=== PATIENT | female | born 1940 | race Caucasian/White ===

== ENCOUNTER 2016-09-20 17:35 | Emergency (ER) | payer MEDICARE, OTHER ==
[~2016-09-20] VITALS: Ht 165.1 cm; Wt 109.0 kg
[~2016-09-20 17:35] MED LIST: ACET325T14 PO; AMLO10TA2 PO; BUPR150T73 PO; DILT30TA27 PO; FLUO40CA9 PO; FURO40TA6 PO; LEVO125T PO; LIOT5TAB3 PO; LOSA100T6 PO; OMEP-110 PO; ONDA4TAB7 PO; POTA20TA89 PO; POTA40LI3 PO; RIVA20TA PO; ZOLP-413 PO
[2016-09-20] MEDS ORDERED: SODIUM CHLORIDE 0.9% 1,000 ML IV ONE (17:45)
[2016-09-20] MEDS ORDERED: ASPIRIN 81 MG TABLET CHEW PO ONE (18:00)
[2016-09-20] MEDS ORDERED: SODIUM CHLORIDE FLUSH 10ML SYR IVF ONE (18:00)
[2016-09-20 18:34] LABS: BLOOD UREA NITROGEN 23 mg/dL (7-18)
[2016-09-20 18:40] LABS: IS PT STATUS REG ER OR PRE ER? YES
[2016-09-20] MEDS ORDERED: ASPIRIN 81 MG TABLET CHEW ONE (18:42)
[2016-09-20 19:21] VITALS: BP 122/49
== END 2016-09-20 20:27 | disposition home or self-care (01) ==
LOC: ED 20:00
DX: R42 Dizziness and giddiness (principal); I10 Essential (primary) hypertension; I48.91 Unspecified atrial fibrillation; Z86.73 Personal history of transient ischemic attack (TIA), and cerebral infarction without residual deficits; Z87.891 Personal history of nicotine dependence
CPT/HCPCS: 36415; 71020; 80048; 82040; 84439; 84443; 84484; 85025; 85610; 85730; 93005; 96360; 99285; J7030

== ENCOUNTER 2016-10-02 20:07 | Emergency (ER) | payer MEDICARE, OTHER ==
[~2016-10-02] VITALS: Ht 167.6 cm; Wt 104.5 kg
[2016-10-02] MEDS ORDERED: PHENYLEPHRINE NASAL 1%, 15ML SPRAY ONE (20:53)
[2016-10-02] MEDS ORDERED: SILVER NITRATE STICK TP ONE (20:54)
[2016-10-02 21:30] VITALS: BP 144/85
== END 2016-10-02 21:59 | disposition home or self-care (01) ==
LOC: ED 21:33
DX: R04.0 Epistaxis (principal); D68.9 Coagulation defect, unspecified; F32.9 Major depressive disorder, single episode, unspecified; I10 Essential (primary) hypertension; I48.91 Unspecified atrial fibrillation; Z79.01 Long term (current) use of anticoagulants; Z86.73 Personal history of transient ischemic attack (TIA), and cerebral infarction without residual deficits
CPT/HCPCS: 30901

== ENCOUNTER 2016-11-05 19:54 | Emergency (ER) | payer MEDICARE, OTHER ==
[~2016-11-05] VITALS: Ht 167.6 cm; Wt 107.0 kg
[2016-11-05 20:30] LABS: HEMATOCRIT 32.4 % (34.6-47.8); HEMOGLOBIN 10.6 g/dL (11.7-16.4); WHITE BLOOD COUNT 6.3 x10^3/uL (3.4-10)
[2016-11-05] MEDS ORDERED: SODIUM CHLORIDE FLUSH 10ML SYR IVF ONE (20:30)
[2016-11-05] MEDS ORDERED: SODIUM CHLORIDE 0.9% 1,000ML IVBOLUS ONE (20:30)
[2016-11-05 20:39] LABS: BLOOD UREA NITROGEN 19 mg/dL (7-18)
[2016-11-05 20:45] LABS: ASPARTATE AMINO TRANSFERASE 16 U/L (15-37)
[2016-11-05 20:46] LABS: IS PT STATUS REG ER OR PRE ER? YES
[2016-11-05] MEDS ORDERED: OXYC5CAP2 PO (21:04)
[2016-11-05] MEDS ORDERED: LOSA50TA6 PO (21:04)
[2016-11-05 22:10] VITALS: BP 128/60
== END 2016-11-05 22:41 | disposition home or self-care (01) ==
LOC: ED 20:05
DX: R55 Syncope and collapse (principal); J84.10 Pulmonary fibrosis, unspecified; Z86.73 Personal history of transient ischemic attack (TIA), and cerebral infarction without residual deficits; E78.5 Hyperlipidemia, unspecified; Z90.710 Acquired absence of both cervix and uterus; Z90.49 Acquired absence of other specified parts of digestive tract; Z88.8 Allergy status to other drugs, medicaments and biological substances
CPT/HCPCS: 36415; 71020; 80053; 84484; 85025; 93005; 96360; 99285; J7030

== ENCOUNTER → 2018-01-11 | Outpatient (CLI) | payer MEDICARE, OTHER ==
[~2018-01-11] MED LIST changes: -AMLO10TA2 PO; +AMLO10TA6 PO; -LOSA100T6 PO; +LOSA100T7 PO; +LOSA50TA7 PO; +OXYC5CAP2 PO; -POTA40LI3 PO; +POTA40LI7 PO
== END | disposition home or self-care (01) ==
LOC: CFH 13:35
PROVIDERS: ATTEND Internal Medicine
DX: Z12.31 Encounter for screening mammogram for malignant neoplasm of breast (principal)
CPT/HCPCS: 77067

== ENCOUNTER → 2018-01-17 | Outpatient (CLI) | payer MEDICARE, OTHER | END | disposition home or self-care (01) | LOC: CFH 13:59 | PROVIDERS: ATTEND Internal Medicine | DX: Z13.820 Encounter for screening for osteoporosis (principal); M85.88 Other specified disorders of bone density and structure, other site; M81.0 Age-related osteoporosis without current pathological fracture | CPT/HCPCS: 77080 ==

== ENCOUNTER 2019-09-01 13:43 | Emergency (ER) | payer MEDICARE, OTHER ==
[~2019-09-01] VITALS: Ht 167.6 cm; Wt 107.3 kg
[~2019-09-01 13:43] MED LIST changes: -AMLO10TA6 PO; +AMLO10TA8 PO; +LIOT5TAB11 PO; -LIOT5TAB3 PO; +LOSA100T14 PO; -LOSA100T7 PO; +LOSA50TA14 PO; -LOSA50TA7 PO
[2019-09-01 15:11] LABS: BASOPHILS # (AUTO) 0.02 x10^3/uL (0-0.1); BASOPHILS % (AUTO) 0 % (0-1); EOSINOPHILS # (AUTO) 0.15 x10^3/uL (0-0.4); EOSINOPHILS % (AUTO) 2 % (1-7); LYMPHOCYTES # (AUTO) 0.88 x10^3/uL (1-3.4); LYMPHOCYTES % (AUTO) 14 % (22-44); MD NO; MEAN CORPUSCULAR HEMOGLOBIN 30.2 pg (27.0-34.8); MEAN CORPUSCULAR HGB CONC 32.4 g/dL (32.4-35.8); MEAN CORPUSCULAR VOLUME 93.2 fL (80-100); MONOCYTES # (AUTO) 0.43 x10^3/uL (0.2-0.8); MONOCYTES % (AUTO) 7 % (2-9); NEUTROPHILS # (AUTO) 5.01 x10^3/uL (1.8-6.8); NEUTROPHILS % (AUTO) 77 % (42-75); PLATELET COUNT 368 x10^3/uL (130-400); RED BLOOD COUNT 4.36 x10^6/uL (3.82-5.3); RED CELL DISTRIBUTION WIDTH 13.3 % (9.6-15.2)
[2019-09-01 15:16] LABS: ALANINE AMINOTRANSFERASE 16 U/L (12-78); ALBUMIN 3.7 g/dL (3.4-5.0); ANION GAP 5 mmol/L (5-15); CALCIUM 9.2 mg/dL (8.5-10.1); CHLORIDE 105 mmol/L (98-107); CREATININE 1.36 mg/dL (0.55-1.02)
[2019-09-01 15:19] LABS: ALKALINE PHOSPHATASE 82 U/L (45-117); BILIRUBIN,TOTAL 0.4 mg/dL (0.2-1.0); TOTAL PROTEIN 7.1 g/dL (6.4-8.2)
[2019-09-01 15:31] VITALS: BP 173/66
== END 2019-09-01 15:35 | disposition home or self-care (01) ==
LOC: ED 15:28
DX: I10 Essential (primary) hypertension (principal); E78.5 Hyperlipidemia, unspecified; Z90.49 Acquired absence of other specified parts of digestive tract; Z90.710 Acquired absence of both cervix and uterus; Z86.73 Personal history of transient ischemic attack (TIA), and cerebral infarction without residual deficits
CPT/HCPCS: 36415; 71046; 80053; 85025; 93005; 99285

== ENCOUNTER 2020-02-15 15:51 | Inpatient (IN) | payer MEDICARE, OTHER ==
[~2020-02-15] VITALS: Ht 165.1 cm; Wt 97.2 kg
[~2020-02-15 15:51] MED LIST changes: +AMLO-211 PO; -AMLO10TA8 PO
--- NOTE | 2020-02-15 16:18 | NUR ---
PATIENT WHEELED BACK FROM TRIAGE WITH CHIEF C/O HIGH BP. PATIENT STATES HER BP HAS BEEN "ALL OVER THE PLACE" THE LAST 6 MONTHS. PATIENT ALSO REPORTS LOSS OF APPETITE THE LAST 6 MONTHS, PATIENT HAS ALSO BEEN SOB, GARRETT AND LETHARGY. PATIENT STATES SYMPTOMS HAVE PROGRESSIVELY GOTTEN WORSE. ACCOMPANIED BY SPOUSE, CLARK, BP NOW IS 189/70, CALL LIGHT WITHIN REACH.
--- NOTE | 2020-02-15 17:40 | NUR ---
Patient's has her cell phone and number is [phone] if he needs to be reached.
--- NOTE | 2020-02-15 18:03 | NUR ---
PATIENT AMBULATED TO BATHROOM WITH STEADY GAIT FOR URINE SAMPLE.
[2020-02-15 18:22] LABS: ALANINE AMINOTRANSFERASE 26 U/L (12-78); ALBUMIN 3.7 g/dL (3.4-5.0); ANION GAP 6 mmol/L (5-15); BASOPHILS % (AUTO) 0 % (0-1); CALCIUM 9.8 mg/dL (8.5-10.1); CHLORIDE 106 mmol/L (98-107); CREATININE 1.13 mg/dL (0.55-1.02); EOSINOPHILS % (AUTO) 0 % (1-7); LYMPHOCYTES % (AUTO) 10 % (22-44); MEAN CORPUSCULAR HEMOGLOBIN 29.6 pg (27.0-34.8); MEAN CORPUSCULAR HGB CONC 32.5 g/dL (32.4-35.8); MEAN PLATELET VOLUME 6.6 fL (7.4-10.4); MONOCYTES % (AUTO) 6 % (2-9); NEUTROPHILS % (AUTO) 83 % (42-75); PLATELET COUNT 501 x10^3/uL (130-400); RED BLOOD COUNT 4.47 x10^6/uL (3.82-5.3); RED CELL DISTRIBUTION WIDTH 13.4 % (9.6-15.2)
[2020-02-15 18:25] LABS: MD NO
[2020-02-15 18:26] LABS: ALKALINE PHOSPHATASE 96 U/L (45-117); BILIRUBIN,TOTAL 0.5 mg/dL (0.2-1.0); T4 (THYROXINE) 12.2 mcg/dL (4.8-13.9); TOTAL PROTEIN 7.2 g/dL (6.4-8.2); TROPONIN I 0.075 ng/mL (0.000-0.045)
[2020-02-15] MEDS ORDERED: hydrALAzine 20 MG/ML, 1ML ONE (18:29)
[2020-02-15 18:54] LABS: MICROSCOPIC INDICATED
--- NOTE | 2020-02-15 18:58 | NUR ---
ERMD AT BEDSIDE TO DISCUSS POC.
[2020-02-15] MEDS ORDERED: hydrALAzine 20 MG/ML, 1ML IV ONE (19:00)
[2020-02-15] MEDS ORDERED: CEFTRIAXONE PMX 1GM/50ML 50 ML ONE (19:13)
[2020-02-15] MEDS ORDERED: SODIUM CHLORIDE 0.9% 1,000 ML IV SCH (19:30)
[2020-02-15] MEDS ORDERED: CEFTRIAXONE PMX 1GM/50ML 50 ML IV ONE (19:30)
[2020-02-15] MEDS ORDERED: DOXYCYCLINE 100 MG in DEXTROSE 5% 250 ML IV SCH (19:30)
[2020-02-15] MEDS ORDERED: GUAIFENESIN/DM 200-20MG, 10ML UDC PO PRN (19:30)
[2020-02-15 19:43] LABS: C-REACTIVE PROTEIN, QUANT 0.21 mg/dL (0.02-0.49)
[2020-02-15 19:53] LABS: D-DIMER (DIC) 0.35 ug/mlFEU (0.00-0.52); PROTIME 11.1 Seconds (9.6-11.5)
--- NOTE | 2020-02-15 20:36 | NUR ---
PATIENT AMBULATED TO BATHROOM WITH STEADY GAIT, AMBULATED BACK TO [facility], CONNECTED TO RADAR MECHANIC, NADN, CALL LIGHT WITHIN REACH.
--- NOTE | 2020-02-15 20:55 | NUR ---
MEDS REQUESTED FROM PHARMACY, ONLY 30 MG TABLET SENT, NOTIFIED PHARMACY THAT REQUESTED DOSAGE IS 90 MG. THEY WILL SEND OTHER TABLETS.
--- NOTE | 2020-02-15 20:56 | NUR ---
REPORT CALLED TO YVONNE PRETTY ON [facility].
--- NOTE | 2020-02-15 20:59 | NUR ---
SPOKE WITH PATIENT'S SPOUSE MABLE, AND UPDATED ON POC.
[2020-02-15] MEDS: DILTIAZEM 30 MG TABLET PO SCH (21:03)
[2020-02-15] MEDS: LOSARTAN 50MG TABLET PO SCH (21:03)
--- NOTE | 2020-02-15 22:28 | NUR ---
PATIENT TRANSFERRED IN STABLE CONDITION VIA GURNEY WITH 2 ED TECHS TO [facility] TELEMETRY FLOOR. ALL PATIENT BELONGINGS GATHERED AND TAKEN TO FLOOR WITH PATIENT.
[2020-02-15 22:45] VITALS: BP 151/74
[2020-02-15] MEDS: ACETAMINOPHEN 325 MG TABLET PO PRN (23:30)
[2020-02-16] VITALS (17 sets, daily range): BP systolic 146–195; BP diastolic 71–101
[2020-02-16] MEDS: hydrALAzine 20 MG/ML, 1ML IVPush PRN ×4 (00:28→15:35)
[2020-02-16 01:27] LABS: TROPONIN I 0.054 ng/mL (0.000-0.045)
[2020-02-16] MEDS: LABETALOL 5MG/ML, 20ML IVPush PRN ×3 (03:54→13:10)
[2020-02-16] MEDS: LIOTHYRONINE 5 MCG TABLET PO SCH (05:21)
[2020-02-16] MEDS: ACETAMINOPHEN 325 MG TABLET PO PRN ×2 (05:21→11:56)
[2020-02-16] MEDS: LEVOTHYROXINE 125 MCG TABLET PO SCH (05:21)
[2020-02-16 06:14] LABS: BASOPHILS % (AUTO) 0 % (0-1); EOSINOPHILS % (AUTO) 1 % (1-7); LYMPHOCYTES % (AUTO) 13 % (22-44); MEAN CORPUSCULAR HEMOGLOBIN 30.1 pg (27.0-34.8); MEAN CORPUSCULAR HGB CONC 32.9 g/dL (32.4-35.8); MEAN PLATELET VOLUME 6.5 fL (7.4-10.4); MONOCYTES % (AUTO) 9 % (2-9); NEUTROPHILS % (AUTO) 77 % (42-75); PLATELET COUNT 494 x10^3/uL (130-400); RED BLOOD COUNT 4.13 x10^6/uL (3.82-5.3); RED CELL DISTRIBUTION WIDTH 13.5 % (9.6-15.2)
[2020-02-16 06:15] LABS: MD NO
[2020-02-16 06:27] LABS: CHLORIDE 108 mmol/L (98-107)
[2020-02-16 06:37] LABS: ALBUMIN 3.3 g/dL (3.4-5.0); ALKALINE PHOSPHATASE 86 U/L (45-117); ANION GAP 8 mmol/L (5-15); BILIRUBIN,TOTAL 0.5 mg/dL (0.2-1.0); CALCIUM 9.2 mg/dL (8.5-10.1); CREATININE 1.02 mg/dL (0.55-1.02); TOTAL PROTEIN 6.7 g/dL (6.4-8.2)
[2020-02-16 06:38] LABS: ALANINE AMINOTRANSFERASE 23 U/L (12-78)
[2020-02-16] MEDS: DILTIAZEM 30 MG TABLET PO SCH ×3 (09:59→20:17)
[2020-02-16] MEDS: LOSARTAN 50MG TABLET PO SCH ×2 (09:59→20:21)
[2020-02-16] MEDS: RIVAROXABAN 20 MG TABLET PO SCH (10:00)
[2020-02-16] MEDS: FUROSEMIDE 40 MG TABLET PO SCH (10:00)
[2020-02-16] MEDS: DOXYCYCLINE 100MG TABLET PO SCH ×3 (10:00→20:23)
[2020-02-16] MEDS: POTASSIUM CHLORIDE 10 MEQ TABLET.ER PO SCH (10:00)
[2020-02-16] MEDS: BUTALB/APAP/CAFFEINE 50MG/325MG/40MG PO PRN ×2 (10:00→18:26)
[2020-02-16] MEDS ORDERED: GABAPENTIN 300 MG CAPSULE PO PRN (10:00)
[2020-02-16] MEDS ORDERED: ONDANSETRON 2MG/ML, 2ML IVPush PRN (11:00)
[2020-02-16] MEDS ORDERED: HYDROcodone/APAP 5/325 TABLET PO PRN (14:00)
[2020-02-16] MEDS ORDERED: CEFTRIAXONE PMX 1GM/50ML 50 ML IV SCH (19:30)
[2020-02-16] MEDS: MELATONIN 5 MG TABLET PO SCH (20:21)
[2020-02-17 00:34] VITALS: BP 99/57
[2020-02-17 04:52] LABS: BASOPHILS % (AUTO) 0 % (0-1); EOSINOPHILS % (AUTO) 1 % (1-7); LYMPHOCYTES % (AUTO) 13 % (22-44); MEAN CORPUSCULAR HEMOGLOBIN 30.9 pg (27.0-34.8); MEAN CORPUSCULAR HGB CONC 33.7 g/dL (32.4-35.8); MEAN PLATELET VOLUME 6.6 fL (7.4-10.4); MONOCYTES % (AUTO) 9 % (2-9); NEUTROPHILS % (AUTO) 77 % (42-75); PLATELET COUNT 478 x10^3/uL (130-400); RED BLOOD COUNT 3.83 x10^6/uL (3.82-5.3); RED CELL DISTRIBUTION WIDTH 13.8 % (9.6-15.2)
[2020-02-17 05:03] LABS: ANION GAP 7 mmol/L (5-15); CALCIUM 8.8 mg/dL (8.5-10.1); CHLORIDE 106 mmol/L (98-107)
[2020-02-17 05:04] LABS: CREATININE 1.31 mg/dL (0.55-1.02)
[2020-02-17 05:18] LABS: MD NO
[2020-02-17] MEDS: LEVOTHYROXINE 125 MCG TABLET PO SCH (05:20)
[2020-02-17] MEDS: LIOTHYRONINE 5 MCG TABLET PO SCH (05:21)
[2020-02-17 08:18] VITALS: BP 123/66
[2020-02-17] MEDS: RIVAROXABAN 20 MG TABLET PO SCH (09:26)
[2020-02-17] MEDS: POTASSIUM CHLORIDE 10 MEQ TABLET.ER PO SCH (09:26)
[2020-02-17] MEDS: LOSARTAN 50MG TABLET PO SCH ×2 (09:26→21:08)
[2020-02-17] MEDS: FUROSEMIDE 40 MG TABLET PO SCH (09:26)
[2020-02-17] MEDS: DOXYCYCLINE 100MG TABLET PO SCH ×2 (09:26→21:08)
[2020-02-17] MEDS: DILTIAZEM 30 MG TABLET PO SCH ×3 (09:26→21:09)
[2020-02-17] MEDS ORDERED: PHARMACY MAY ADJ FOR RENAL FX MC PRN (10:00)
[2020-02-17] MEDS: MEROPENEM 1 GM in SODIUM CHLORIDE 0.9% 100 ML IV SCH ×2 (10:44→21:14)
[2020-02-17 12:38] VITALS: BP 95/54
[2020-02-17 21:00] VITALS: BP 121/68
[2020-02-17] MEDS: MELATONIN 5 MG TABLET PO SCH (21:08)
[2020-02-18 01:25] VITALS: BP 105/56
[2020-02-18] MEDS: ACETAMINOPHEN 325 MG TABLET PO PRN ×2 (03:10→22:55)
[2020-02-18] MEDS: LEVOTHYROXINE 125 MCG TABLET PO SCH (06:01)
[2020-02-18] MEDS: LIOTHYRONINE 5 MCG TABLET PO SCH (06:02)
[2020-02-18 06:34] LABS: ANION GAP 5 mmol/L (5-15); CALCIUM 8.9 mg/dL (8.5-10.1); CHLORIDE 107 mmol/L (98-107); CREATININE 1.49 mg/dL (0.55-1.02)
[2020-02-18] MEDS: LOSARTAN 50MG TABLET PO SCH ×2 (09:32→22:27)
[2020-02-18] MEDS: DOXYCYCLINE 100MG TABLET PO SCH ×2 (09:33→22:27)
[2020-02-18] MEDS: DILTIAZEM 30 MG TABLET PO SCH ×3 (09:33→22:26)
[2020-02-18] MEDS: POTASSIUM CHLORIDE 10 MEQ TABLET.ER PO SCH (09:40)
[2020-02-18] MEDS: RIVAROXABAN 20 MG TABLET PO SCH (09:40)
[2020-02-18] MEDS: MEROPENEM 1 GM in SODIUM CHLORIDE 0.9% 100 ML IV SCH ×2 (10:18→22:27)
[2020-02-18 14:18] VITALS: BP 121/57
[2020-02-18 19:51] VITALS: BP 118/56
[2020-02-18] MEDS: MELATONIN 5 MG TABLET PO SCH (22:27)
[2020-02-19 01:01] VITALS: BP 102/58
[2020-02-19] MEDS: DOCUSATE 100 MG CAPSULE PO PRN (06:27)
[2020-02-19] MEDS: LEVOTHYROXINE 125 MCG TABLET PO SCH (06:27)
[2020-02-19] MEDS: LIOTHYRONINE 5 MCG TABLET PO SCH (06:27)
[2020-02-19] MEDS ORDERED: SODIUM CHLORIDE 0.9% 1,000ML IVBOLUS ONE (06:30)
[2020-02-19 06:50] VITALS: BP 112/69
[2020-02-19 06:58] LABS: ANION GAP 5 mmol/L (5-15); CALCIUM 9.2 mg/dL (8.5-10.1); CHLORIDE 109 mmol/L (98-107)
[2020-02-19 07:00] LABS: CREATININE 1.18 mg/dL (0.55-1.02)
[2020-02-19] MEDS: DOXYCYCLINE 100MG TABLET PO SCH ×2 (08:53→21:37)
[2020-02-19] MEDS: DILTIAZEM 30 MG TABLET PO SCH ×3 (08:53→21:38)
[2020-02-19] MEDS: LOSARTAN 50MG TABLET PO SCH ×2 (08:53→21:38)
[2020-02-19] MEDS: RIVAROXABAN 15 MG TABLET PO SCH (08:54)
[2020-02-19] MEDS: MEROPENEM 1 GM in SODIUM CHLORIDE 0.9% 100 ML IV SCH ×2 (10:21→23:00)
[2020-02-19 14:11] VITALS: BP 142/62
[2020-02-19 20:03] VITALS: BP 120/53
[2020-02-19] MEDS: MELATONIN 5 MG TABLET PO SCH (21:38)
[2020-02-20 00:08] VITALS: BP 112/69
[2020-02-20] MEDS: DOCUSATE 100 MG CAPSULE PO PRN (06:41)
[2020-02-20] MEDS: LEVOTHYROXINE 125 MCG TABLET PO SCH (06:41)
[2020-02-20] MEDS: LIOTHYRONINE 5 MCG TABLET PO SCH (06:41)
[2020-02-20 07:01] VITALS: BP 118/69
[2020-02-20] MEDS ORDERED: FUROSEMIDE 40 MG TABLET PO SCH (09:00)
[2020-02-20] MEDS: DOXYCYCLINE 100MG TABLET PO SCH (09:28)
[2020-02-20] MEDS: DILTIAZEM 30 MG TABLET PO SCH (09:28)
[2020-02-20] MEDS: MEROPENEM 1 GM in SODIUM CHLORIDE 0.9% 100 ML IV SCH (09:29)
[2020-02-20] MEDS: LOSARTAN 50MG TABLET PO SCH (09:29)
[2020-02-20] MEDS ORDERED: DOXY100T PO (11:13)
[2020-02-20] MEDS ORDERED: FOSF3PAC PO (11:13)
[2020-02-20] MEDS ORDERED: CEFD300C37 PO (11:14)
[2020-02-20] MEDS ORDERED: FOSFOMYCIN 3 GM PACKET PO ONE (12:00)
[2020-02-20] MEDS: RIVAROXABAN 15 MG TABLET PO SCH (13:00)
== END 2020-02-20 13:40 | disposition home health service (06) | DRG 280 ==
LOC: ED 20:26 → EDIP 20:41 → 4WST 22:32
PROVIDERS: ADMIT Family Medicine; ATTEND Hospitalist
DX: I16.0 Hypertensive urgency (principal); J18.9 Pneumonia, unspecified organism; I21.A1 Myocardial infarction type 2; I50.30 Unspecified diastolic (congestive) heart failure; N17.9 Acute kidney failure, unspecified; N39.0 Urinary tract infection, site not specified; Z16.12 Extended spectrum beta lactamase (ESBL) resistance; I13.0 Hypertensive heart and chronic kidney disease with heart failure and stage 1 through stage 4 chronic kidney disease, or unspecified chronic kidney disease; Z20.828 Contact with and (suspected) exposure to other viral communicable diseases; I48.0 Paroxysmal atrial fibrillation; G89.29 Other chronic pain; B96.20 Unspecified Escherichia coli [E. coli] as the cause of diseases classified elsewhere; E03.9 Hypothyroidism, unspecified; E78.5 Hyperlipidemia, unspecified; D72.829 Elevated white blood cell count, unspecified; N18.30 Chronic kidney disease, stage 3 unspecified; Z79.01 Long term (current) use of anticoagulants; Z86.73 Personal history of transient ischemic attack (TIA), and cerebral infarction without residual deficits; Z87.891 Personal history of nicotine dependence; Z90.710 Acquired absence of both cervix and uterus; Z79.899 Other long term (current) drug therapy; Z79.891 Long term (current) use of opiate analgesic; Z90.49 Acquired absence of other specified parts of digestive tract; Z91.041 Radiographic dye allergy status; Z88.8 Allergy status to other drugs, medicaments and biological substances
CPT/HCPCS: 36415; 71045; 80048; 80053; 81001; 82728; 83615; 83735; 83880; 84145; 84436; 84443; 84484; 85025; 85049; 85379; 85384; 85610; 85730; 86140; 87077; 87086; 87184; 87186; 93005; 93306; 96365; 96366; 96368; 96375; 99285; G0378; J0696; J2185; J2405; J7060; J0360; J7030; U0003